=== PATIENT | female | born 1945 ===

== ENCOUNTER 2016-11-30 07:33 | Day surgery (SDC) | payer MEDICARE ==
[2016-11-30] MEDS ORDERED: Lactated Ringer's 500 ML IV ONE (08:08)
[2016-11-30] MEDS ORDERED: Propofol 10 mg/ml Inj (20 ML) ONE (09:10)
[2016-11-30 10:07] VITALS: TEMP 96.9
[2016-11-30 10:23] VITALS: BP 142/62; PULSE 56; RESP 12; O2SAT 99
== END 2016-11-30 10:32 | disposition home or self-care (01) ==
LOC: H.ENDO 07:33
PROVIDERS: ATTEND Internal Medicine Gastroenterology
DX: Z12.11 Encounter for screening for malignant neoplasm of colon (principal); K30 Functional dyspepsia; K29.50 Unspecified chronic gastritis without bleeding; K64.8 Other hemorrhoids; K57.30 Diverticulosis of large intestine without perforation or abscess without bleeding; E78.5 Hyperlipidemia, unspecified; I10 Essential (primary) hypertension
CPT/HCPCS: 43239; 45378; 88305; J2001; J2704; J7120